=== PATIENT | male | born 1940 | race Caucasian/White ===

== ENCOUNTER 2019-11-02 13:00 | Emergency (ER) | payer BC ==
[~2019-11-02] VITALS: Ht 177.8 cm; Wt 54.4 kg
[2019-11-02 15:35] VITALS: BP 128/76
== END 2019-11-02 16:12 | disposition home or self-care (01) ==
LOC: ER 13:00
DX: S29.011A Strain of muscle and tendon of front wall of thorax, initial encounter (principal); K80.20 Calculus of gallbladder without cholecystitis without obstruction; I10 Essential (primary) hypertension; Z95.1 Presence of aortocoronary bypass graft; Z91.041 Radiographic dye allergy status; W18.39XA Other fall on same level, initial encounter; Y93.89 Activity, other specified; Y92.89 Other specified places as the place of occurrence of the external cause; Y99.8 Other external cause status
CPT/HCPCS: 71250; 74176; 93005

== ENCOUNTER 2022-06-21 14:23 | Inpatient (IN) | payer BC ==
[2022-06-21] VITALS (14 sets, daily range): BP systolic 77–127; BP diastolic 25–70
[~2022-06-21] VITALS: Ht 170.2 cm; Wt 82.1 kg
[2022-06-21] MEDS ORDERED: ETOMIDATE (2MG/ML) 20ML VIAL IV ONE (14:37)
[2022-06-21] MEDS ORDERED: ROCURONIUM 10MG/ML 10ML VIAL IV ONE (14:37)
[2022-06-21] MEDS ORDERED: MIDAZOLAM DRIP 50 mg/50mL 50 ML IV ONE (14:37)
[2022-06-21] MEDS ORDERED: NOREPINEPHRINE 8 MG/250ML KIT 250 ML IV ONE (14:50)
[2022-06-21] MEDS ORDERED: SODIUM CHLORIDE 0.9% 2,000 ML IV ONE (14:50)
[2022-06-21] MEDS ORDERED: VANCOMYCIN 1GM/250ML 250 ML IV ONE ×3 (14:50→20:00)
[2022-06-21] MEDS ORDERED: CEFEPIME 1GM/ 50ML 50 ML IV ONE (15:30)
[2022-06-21 15:45] LABS: Hematocrit 15.3 % (41.0-53.0); Mean Corpuscular Hemoglobin 34.6 pg (28.0-32.0); Mean Corpuscular Hgb Conc. 26.9 g/dL (32.0-36.0); Mean Corpuscular Volume 128.6 fL (80.0-100.0); Red Blood Cells 1.19 10^6/uL (4.5-5.90)
[2022-06-21 15:49] LABS: Albumin 2.3 g/dL (3.4-5.0); BUN/Creatinine Ratio 22.5; Calcium 7.3 mg/dL (8.5-10.1)
[2022-06-21 15:51] LABS: Bilirubin, Total 1.4 mg/dL (0.2-1.0); Total Protein 4.9 g/dL (6.4-8.2)
[2022-06-21 15:54] LABS: Lactic Acid w/Reflex 14.4 mmol/L (0.4-2.0)
[2022-06-21] MEDS: NOREPINEPHRINE 8 MG/250ML KIT 250 ML IV SCH (15:56)
[2022-06-21] MEDS: MIDAZOLAM DRIP 50 mg/50mL 50 ML IV SCH ×2 (15:57→18:55)
[2022-06-21 16:03] LABS: Amphetamine Screen, Urine NEGATIVE (NEGATIVE); Barbiturate Scree,Urine NEGATIVE (NEGATIVE); Benzodiazephine Screen, Urine NEGATIVE (NEGATIVE); Cannabinoid Screen, Urine NEGATIVE (NEGATIVE); Cocaine Screen, Urine NEGATIVE (NEGATIVE); Opiate Scree,Urine NEGATIVE (NEGATIVE); Phencyclidine Screen, Urine NEGATIVE (NEGATIVE)
[2022-06-21 16:07] LABS: Red Cell Distribution Width 31.1 % (11.8-14.3)
[2022-06-21 16:09] LABS: White Blood Cell 48.9 10^3/uL (4.4-10.8)
[2022-06-21 16:10] LABS: Hemoglobin 4.1 g/dL (13.5-17.5)
[2022-06-21 16:11] LABS: Basophils % (manual) 0 (0.0-2.0)
[2022-06-21 16:13] LABS: Urine Bacteria NONE SEEN /hpf (None Seen); Urine Blood Negative /uL (Negative); Urine Hyaline Cast FEW /lpf (0 - 2); Urine Mucus FEW (None Seen); Urine Specific Gravity 1.017 (1.001-1.035); Urine WBC 1 /hpf (0 - 3)
[2022-06-21] MEDS ORDERED: phytonadione 2.5 MG in SODIUM CHL 0.9% 50 ML IV ONE (16:15)
[2022-06-21 16:19] LABS: Potassium 5.9 mmol/L (3.5-5.1)
[2022-06-21 16:42] LABS: INR > 8.0 (0.9-1.15)
[2022-06-21] MEDS ORDERED: CALCIUM GLUC 1,000mg/50ml-NS 50 ML IV ONE (17:00)
[2022-06-21] MEDS ORDERED: DEXTROSE (50%) 50ML SYRG IV ONE (17:00)
[2022-06-21] MEDS ORDERED: InsuLIN REG 1unit/0.01ml Soln (100units/ml) IV ONE (17:00)
[2022-06-21 18:15] LABS: Lactic Acid w/Reflex 10.4 mmol/L (0.4-2.0)
[2022-06-21] MEDS ORDERED: PANTOPRAZOLE 80 MG in SODIUM CHL 0.9% 100 ML IV ONE (18:30)
[2022-06-21] MEDS ORDERED: PANTOPRAZOLE 40mg/50ML NS AE 50 ML IV ONE (18:30)
[2022-06-21] MEDS ORDERED: SODIUM BICARBONATE 50ML VIAL 150 ML in D5W 5% 1,000 ML IV ONE (19:15)
[2022-06-21 19:17] LABS: Band Neutrophils % (manual) 8; Eosinophils % (manual) 1 (0-7); Lymphocytes % (manual) 24 (10.0-50.0); Monocytes % (manual) 22 (0-12)
[2022-06-21 19:18] LABS: Metamyelocytes % 10; Myelocytes % 4; Reactive Lymphocytes 4
[2022-06-21] MEDS ORDERED: ONDANSETRON HCL 4 MG/2 ML VIAL IV PRN (19:30)
[2022-06-21] MEDS ORDERED: VANCOMYCIN PER PHARMACY 0 MG IV SCH (19:30)
[2022-06-21] MEDS ORDERED: OCTREOTIDE ACETATE 100 MCG in SODIUM CHL 0.9% 50 ML IV ONE (19:30)
[2022-06-21 19:40] LABS: Blast Cells 4
[2022-06-21 20:24] LABS: Basophils # (auto) 0.5 10 ^3/uL (0-0.2); Basophils % (auto) 0.8 % (0.0-2.0); Eosinophils # (auto) 0.9 10 ^3/uL (0-0.8); Eosinophils % (auto) 1.3 % (0.0-7.0); Hematocrit 25.2 % (41.0-53.0); Hemoglobin 7.3 g/dL (13.5-17.5); Lymphocytes % (auto) 10.7 % (10.0-50.0); Mean Corpuscular Hemoglobin 31.3 pg (28.0-32.0); Mean Corpuscular Hgb Conc. 29.2 g/dL (32.0-36.0); Mean Corpuscular Volume 107.2 fL (80.0-100.0); Monocytes # (auto) 38.5 10 ^3/uL (0-1.3); Neutrophils # (auto) 18.5 10 ^3/uL (1.6-8.6); Neutrophils % (auto) 28.3 % (37.0-80.0); Red Blood Cells 2.35 10^6/uL (4.5-5.90)
[2022-06-21 20:26] LABS: Monocytes % (auto) 58.9 % (0.0-12.0)
[2022-06-21 20:33] LABS: White Blood Cell 65.5 10^3/uL (4.4-10.8)
[2022-06-21 20:37] LABS: Albumin 2.3 g/dL (3.4-5.0); BUN/Creatinine Ratio 23.4; Calcium 6.9 mg/dL (8.5-10.1); Potassium 5.4 mmol/L (3.5-5.1)
[2022-06-21 20:46] LABS: Bilirubin, Total 1.2 mg/dL (0.2-1.0)
[2022-06-21] MEDS: OCTREOTIDE ACETATE 500 MCG in SODIUM CHL 0.9% 99 ML IV SCH (21:24)
[2022-06-21 21:43] LABS: INR 6.03 (0.9-1.15)
[2022-06-21] MEDS ORDERED: CEFEPIME 2 GM in SODIUM CHL 0.9% 50 ML IV SCH (22:00)
[2022-06-21] MEDS ORDERED: metroNIDAZOLE 500MG/100ML 100 ML IV ONE (22:15)
[2022-06-21] MEDS: VASOPRESSIN 50 UNITS in D5W 5% 247.5 ML IV SCH (22:30)
[2022-06-21] MEDS ORDERED: ACETAMINOPHEN 650 MG RECT SUPP PR PRN (22:45)
[2022-06-22] VITALS (111 sets, daily range): BP systolic 88–128; BP diastolic 36–96
[2022-06-22 01:02] LABS: Hemoglobin 7.7 g/dL (13.5-17.5)
[2022-06-22 01:09] LABS: Mean Corpuscular Hemoglobin 30.7 pg (28.0-32.0); Mean Corpuscular Hgb Conc. 30.8 g/dL (32.0-36.0); Mean Corpuscular Volume 99.6 fL (80.0-100.0); Red Blood Cells 2.51 10^6/uL (4.5-5.90); Red Cell Distribution Width 21.4 % (11.8-14.3)
[2022-06-22 01:10] LABS: Basophils % (manual) 0 (0.0-2.0); Eosinophils % (manual) 0 (0-7); Promyelocytes % 0
[2022-06-22 01:16] LABS: Albumin 2.3 g/dL (3.4-5.0); BUN/Creatinine Ratio 26.4; Calcium 6.4 mg/dL (8.5-10.1); Magnesium 2.5 mg/dL (1.6-2.6); Potassium 5.2 mmol/L (3.5-5.1)
[2022-06-22 01:25] LABS: Bilirubin, Total 1.2 mg/dL (0.2-1.0); Phosphorus 8.8 mg/dL (2.5-4.90); Total Protein 4.7 g/dL (6.4-8.2)
[2022-06-22] MEDS: PANTOPRAZOLE 40mg/50ML NS AE 50 ML IV SCH ×5 (01:41→21:37)
[2022-06-22] MEDS: NOREPINEPHRINE 8 MG/250ML KIT 250 ML IV SCH ×4 (02:08→17:16)
[2022-06-22] MEDS: MIDAZOLAM DRIP 50 mg/50mL 50 ML IV SCH ×4 (03:13→21:35)
[2022-06-22] MEDS ORDERED: PROPOFOL 100 ML IV ONE (04:39)
[2022-06-22 04:42] LABS: INR 2.83 (0.9-1.15)
[2022-06-22] MEDS: PROPOFOL 100 ML IV SCH ×2 (04:45→12:10)
[2022-06-22 06:58] LABS: Band Neutrophils % (manual) 5; Blast Cells 5; Lymphocytes % (manual) 23 (10.0-50.0); Metamyelocytes % 8; Monocytes % (manual) 23 (0-12); Myelocytes % 6; Reactive Lymphocytes 1
[2022-06-22] MEDS: OCTREOTIDE ACETATE 500 MCG in SODIUM CHL 0.9% 99 ML IV SCH ×2 (08:19→17:15)
[2022-06-22] MEDS: VASOPRESSIN 50 UNITS in D5W 5% 247.5 ML IV SCH (09:08)
[2022-06-22] MEDS: fentaNYL Drip 2500mCg/250mlNS 250 ML IV SCH (14:03)
[2022-06-22] MEDS ORDERED: VANCOMYCIN 1GM/250ML 250 ML IV ONE (14:30)
[2022-06-22] MEDS ORDERED: PIPERACILLIN-TAZOB 3.375GM 100 ML IV SCH (15:00)
[2022-06-22] MEDS ORDERED: CEFEPIME 2 GM in SODIUM CHL 0.9% 50 ML IV SCH (16:00)
[2022-06-22] MEDS: CEFEPIME 1GM/ 50ML 50 ML IV SCH (16:23)
[2022-06-22] MEDS ORDERED: PIPERACILLIN-TAZO 4.5GM 100 ML IV SCH (18:00)
[2022-06-22] MEDS ORDERED: EPINEPHrine HCL 1 MG/10 ML SYRG IV ONE (21:15)
[2022-06-22] MEDS: metroNIDAZOLE 500MG/100ML 100 ML IV SCH (21:35)
[2022-06-22 22:04] LABS: Free T4 (Free Thyroxine) 0.93 ng/dL (0.89-1.76)
[2022-06-23] VITALS (100 sets, daily range): BP systolic 104–125; BP diastolic 51–61
[2022-06-23] MEDS: OCTREOTIDE ACETATE 500 MCG in SODIUM CHL 0.9% 99 ML IV SCH ×4 (02:44→23:30)
[2022-06-23] MEDS: PANTOPRAZOLE 40mg/50ML NS AE 50 ML IV SCH ×6 (02:44→22:11)
[2022-06-23] MEDS: CEFEPIME 1GM/ 50ML 50 ML IV SCH ×2 (03:48→17:24)
[2022-06-23] MEDS: MIDAZOLAM DRIP 50 mg/50mL 50 ML IV SCH ×2 (03:49→09:53)
[2022-06-23 03:53] LABS: Hematocrit 21.3 % (41.0-53.0); Mean Corpuscular Hemoglobin 32.1 pg (28.0-32.0); Mean Corpuscular Volume 97.3 fL (80.0-100.0); Red Blood Cells 2.19 10^6/uL (4.5-5.90); White Blood Cell 26.3 10^3/uL (4.4-10.8)
[2022-06-23 04:04] LABS: Albumin 2.2 g/dL (3.4-5.0)
[2022-06-23 04:12] LABS: INR 1.77 (0.9-1.15); Partial Thromboplastin Time 37.6 sec (24.6-33.4)
[2022-06-23 04:13] LABS: BUN/Creatinine Ratio 33.3; Bilirubin, Total 1.5 mg/dL (0.2-1.0); Total Protein 4.9 g/dL (6.4-8.2)
[2022-06-23 04:21] LABS: Red Cell Distribution Width 20.6 % (11.8-14.3)
[2022-06-23 04:23] LABS: Basophils % (manual) 0 (0.0-2.0); Eosinophils % (manual) 0 (0-7); Reactive Lymphocytes 0
[2022-06-23] MEDS: NOREPINEPHRINE 8 MG/250ML KIT 250 ML IV SCH ×3 (04:40→21:25)
[2022-06-23] MEDS: metroNIDAZOLE 500MG/100ML 100 ML IV SCH ×3 (05:40→21:41)
[2022-06-23] MEDS: VASOPRESSIN 50 UNITS in D5W 5% 247.5 ML IV SCH (07:50)
[2022-06-23] MEDS: hydroxyUREA 500 MG CAP PO SCH (09:52)
[2022-06-23 10:18] LABS: Band Neutrophils % (manual) 7; Blast Cells 4; Lymphocytes % (manual) 27 (10.0-50.0); Metamyelocytes % 6; Monocytes % (manual) 24 (0-12); Myelocytes % 3; Promyelocytes % 1
[2022-06-23] MEDS ORDERED: VANCOMYCIN 1GM/250ML 250 ML IV ONE (11:00)
[2022-06-23] MEDS: fentaNYL Drip 2500mCg/250mlNS 250 ML IV SCH (11:43)
[2022-06-23] MEDS ORDERED: CYANOCOBALAMIN (B-12) 1000 MCG/1 ML VIAL SUBCUT ONE (12:45)
[2022-06-24] VITALS (117 sets, daily range): BP systolic 96–127; BP diastolic 43–65
[2022-06-24 03:37] LABS: White Blood Cell 22.9 10^3/uL (4.4-10.8)
[2022-06-24 03:39] LABS: Hematocrit 20.1 % (41.0-53.0); Mean Corpuscular Hemoglobin 32.4 pg (28.0-32.0); Mean Corpuscular Hgb Conc. 33.3 g/dL (32.0-36.0); Mean Corpuscular Volume 97.5 fL (80.0-100.0); Red Blood Cells 2.06 10^6/uL (4.5-5.90)
[2022-06-24] MEDS: PANTOPRAZOLE 40mg/50ML NS AE 50 ML IV SCH ×4 (03:42→21:14)
[2022-06-24 03:57] LABS: BUN/Creatinine Ratio 42.1; Calcium 6.1 mg/dL (8.5-10.1); Potassium 3.7 mmol/L (3.5-5.1)
[2022-06-24 04:07] LABS: Red Cell Distribution Width 21.2 % (11.8-14.3)
[2022-06-24 04:09] LABS: Hemoglobin 6.7 g/dL (13.5-17.5)
[2022-06-24 04:11] LABS: Basophils % (manual) 0 (0.0-2.0); Promyelocytes % 0; Reactive Lymphocytes 0
[2022-06-24 04:19] LABS: Band Neutrophils % (manual) 7; Blast Cells 4; Eosinophils % (manual) 2 (0-7); Lymphocytes % (manual) 24 (10.0-50.0); Metamyelocytes % 4; Monocytes % (manual) 32 (0-12); Myelocytes % 4
[2022-06-24] MEDS: PROPOFOL 100 ML IV SCH (04:45)
[2022-06-24] MEDS: CEFEPIME 1GM/ 50ML 50 ML IV SCH ×2 (04:50→16:00)
[2022-06-24] MEDS: metroNIDAZOLE 500MG/100ML 100 ML IV SCH ×3 (06:12→21:47)
[2022-06-24] MEDS: OCTREOTIDE ACETATE 500 MCG in SODIUM CHL 0.9% 99 ML IV SCH ×3 (07:15→23:37)
[2022-06-24] MEDS: MIDAZOLAM DRIP 50 mg/50mL 50 ML IV SCH ×2 (07:15→13:03)
[2022-06-24] MEDS: hydroxyUREA 500 MG CAP PO SCH (10:00)
[2022-06-24] MEDS: THIAMINE 100mg/ml INJ (200mg/2ml VIAL) IV SCH (10:14)
[2022-06-24] MEDS: FOLIC ACID 1 MG in D5W 5% 50 ML INJ SCH (10:15)
[2022-06-24] MEDS: fentaNYL Drip 2500mCg/250mlNS 250 ML IV SCH (10:29)
[2022-06-24] MEDS ORDERED: SOD CHL 0.45% 1,000 ML IV SCH (11:45)
[2022-06-24] MEDS: NOREPINEPHRINE 8 MG/250ML KIT 250 ML IV SCH (12:04)
[2022-06-24 12:05] LABS: Magnesium 2.5 mg/dL (1.6-2.6); Phosphorus 2.4 mg/dL (2.5-4.90)
[2022-06-24 14:54] LABS: Protein, Urine 88.9 mg/dL (0.0-11.9)
[2022-06-24] MEDS ORDERED: TPN PER PHARMACY 0 ML IV SCH (15:45)
[2022-06-24] MEDS ORDERED: AMINO ACID INFUSION IN D10W 1,000 ML IV NR ×2 (16:00→20:00)
[2022-06-24] MEDS ORDERED: POTASSIUM PHOSPHATE 26.4 MEQ in SODIUM CHL 0.9% 100 ML IV ONE (16:00)
[2022-06-24] MEDS ORDERED: DEXTROSE (50%) 50ML SYRG IV SCH (16:15)
[2022-06-24] MEDS: ACCU-CHEK COMFORT CURVE STRIP VI SCH ×2 (17:51→23:37)
[2022-06-24] MEDS: InsuLIN REG 1unit/0.01ml Soln (100units/ml) SC SCH ×2 (17:51→23:44)
[2022-06-24] MEDS: DexAMETHasone SOD PHOS 4 MG/1ML SDV INJ IV SCH ×2 (17:55→23:36)
[2022-06-24] MEDS: SOD CHL 0.45% 1,000 ML IV SCH (19:58)
[2022-06-24] MEDS ORDERED: CYANOCOBALAMIN (B-12) 1000 MCG/1 ML VIAL IM ONE (21:15)
[2022-06-24] MEDS: VASOPRESSIN 50 UNITS in D5W 5% 247.5 ML IV SCH (22:30)
[2022-06-24 22:53] LABS: White Blood Cell 60.8 10^3/uL (4.4-10.8)
[2022-06-25] VITALS (108 sets, daily range): BP systolic 95–116; BP diastolic 45–64
[2022-06-25] MEDS: MIDAZOLAM DRIP 50 mg/50mL 50 ML IV SCH ×3 (00:03→21:00)
[2022-06-25] MEDS: PANTOPRAZOLE 40mg/50ML NS AE 50 ML IV SCH ×3 (02:40→11:55)
[2022-06-25] MEDS: CEFEPIME 1GM/ 50ML 50 ML IV SCH ×2 (04:01→16:59)
[2022-06-25 04:43] LABS: Hematocrit 28.2 % (41.0-53.0); Hemoglobin 9.3 g/dL (13.5-17.5); Mean Corpuscular Hemoglobin 30.9 pg (28.0-32.0); Mean Corpuscular Volume 93.5 fL (80.0-100.0); Red Blood Cells 3.01 10^6/uL (4.5-5.90); Red Cell Distribution Width 18.5 % (11.8-14.3); White Blood Cell 22.4 10^3/uL (4.4-10.8)
[2022-06-25] MEDS: PROPOFOL 100 ML IV SCH (04:45)
[2022-06-25 04:54] LABS: INR 1.4 (0.9-1.15); Partial Thromboplastin Time 38.4 sec (24.6-33.4)
[2022-06-25 04:58] LABS: Basophils % (manual) 0 (0.0-2.0); Blast Cells 0; Metamyelocytes % 0; Promyelocytes % 0; Reactive Lymphocytes 0
[2022-06-25 05:01] LABS: Calcium 6.3 mg/dL (8.5-10.1); Magnesium 2.4 mg/dL (1.6-2.6)
[2022-06-25 05:06] LABS: BUN/Creatinine Ratio 40.5; Bilirubin, Total 1.5 mg/dL (0.2-1.0); Phosphorus 2.4 mg/dL (2.5-4.90); Total Protein 4.4 g/dL (6.4-8.2)
[2022-06-25] MEDS: DexAMETHasone SOD PHOS 4 MG/1ML SDV INJ IV SCH ×4 (05:33→23:49)
[2022-06-25] MEDS: ACCU-CHEK COMFORT CURVE STRIP VI SCH ×4 (05:34→23:49)
[2022-06-25] MEDS: metroNIDAZOLE 500MG/100ML 100 ML IV SCH ×3 (05:34→22:11)
[2022-06-25] MEDS: InsuLIN REG 1unit/0.01ml Soln (100units/ml) SC SCH ×4 (05:36→23:52)
[2022-06-25 06:51] LABS: Band Neutrophils % (manual) 15; Eosinophils % (manual) 1 (0-7); Lymphocytes % (manual) 25 (10.0-50.0); Myelocytes % 8
[2022-06-25 06:55] LABS: Monocytes % (manual) 21 (0-12)
[2022-06-25] MEDS: hydroxyUREA 500 MG CAP PO SCH (09:39)
[2022-06-25] MEDS: CYANOCOBALAMIN 500 MCG TAB PO SCH (09:40)
[2022-06-25] MEDS: FOLIC ACID 1 MG in D5W 5% 50 ML INJ SCH (09:47)
[2022-06-25] MEDS: THIAMINE 100mg/ml INJ (200mg/2ml VIAL) IV SCH (09:47)
[2022-06-25] MEDS ORDERED: FOLIC ACID 1 MG in D5W 5% 50 ML INJ SCH (10:00)
[2022-06-25] MEDS: fentaNYL Drip 2500mCg/250mlNS 250 ML IV SCH (12:13)
[2022-06-25] MEDS: SOD CHL 0.45% 1,000 ML IV SCH (14:29)
[2022-06-25] MEDS: VANCOMYCIN 1GM/250ML 250 ML IV SCH (15:01)
[2022-06-25] MEDS: NOREPINEPHRINE 8 MG/250ML KIT 250 ML IV SCH (15:30)
[2022-06-25 19:21] LABS: Hepatitis B Core IgM Negative
[2022-06-25] MEDS: OCTREOTIDE ACETATE 500 MCG in SODIUM CHL 0.9% 99 ML IV SCH (19:34)
[2022-06-25] MEDS ORDERED: TPN PER PHARMACY IV NR ×6 (20:00)
[2022-06-25] MEDS: PANTOPRAZOLE 40 MG/10 ML VIAL INJ IV SCH (22:11)
[2022-06-25] MEDS: VASOPRESSIN 50 UNITS in D5W 5% 247.5 ML IV SCH (22:30)
[2022-06-26] VITALS (86 sets, daily range): BP systolic 106–123; BP diastolic 50–65
[2022-06-26] MEDS: CEFEPIME 1GM/ 50ML 50 ML IV SCH ×2 (03:38→18:00)
[2022-06-26 03:44] LABS: Hemoglobin 8.2 g/dL (13.5-17.5); Mean Corpuscular Hgb Conc. 31.5 g/dL (32.0-36.0)
[2022-06-26 03:46] LABS: Hematocrit 25.9 % (41.0-53.0); Mean Corpuscular Hemoglobin 30.2 pg (28.0-32.0)
[2022-06-26 04:04] LABS: Albumin 1.9 g/dL (3.4-5.0); BUN/Creatinine Ratio 45.5; Calcium 6.7 mg/dL (8.5-10.1); Magnesium 2.5 mg/dL (1.6-2.6); Potassium 4.1 mmol/L (3.5-5.1)
[2022-06-26 04:07] LABS: Bilirubin, Total 1.3 mg/dL (0.2-1.0); Phosphorus 2.3 mg/dL (2.5-4.90); Total Protein 4.7 g/dL (6.4-8.2)
[2022-06-26 04:22] LABS: White Blood Cell 35.3 10^3/uL (4.4-10.8)
[2022-06-26 04:23] LABS: Basophils % (manual) 0 (0.0-2.0); Blast Cells 0; Eosinophils % (manual) 0 (0-7); Metamyelocytes % 0; Promyelocytes % 0
[2022-06-26] MEDS: PROPOFOL 100 ML IV SCH (04:45)
[2022-06-26 05:21] LABS: Myelocytes % 5; Reactive Lymphocytes 2
[2022-06-26 05:22] LABS: Band Neutrophils % (manual) 11; Lymphocytes % (manual) 24 (10.0-50.0); Monocytes % (manual) 28 (0-12)
[2022-06-26] MEDS: DexAMETHasone SOD PHOS 4 MG/1ML SDV INJ IV SCH ×4 (06:05→23:39)
[2022-06-26] MEDS: ACCU-CHEK COMFORT CURVE STRIP VI SCH ×4 (06:08→23:40)
[2022-06-26] MEDS: InsuLIN REG 1unit/0.01ml Soln (100units/ml) SC SCH ×4 (06:08→23:41)
[2022-06-26] MEDS: OCTREOTIDE ACETATE 500 MCG in SODIUM CHL 0.9% 99 ML IV SCH (06:12)
[2022-06-26] MEDS: metroNIDAZOLE 500MG/100ML 100 ML IV SCH ×3 (06:12→21:33)
[2022-06-26] MEDS: hydroxyUREA 500 MG CAP PO SCH (08:38)
[2022-06-26] MEDS: CYANOCOBALAMIN 500 MCG TAB PO SCH (08:39)
[2022-06-26] MEDS: PANTOPRAZOLE 40 MG/10 ML VIAL INJ IV SCH ×2 (09:57→21:33)
[2022-06-26] MEDS: FOLIC ACID 1 MG in D5W 5% 50 ML INJ SCH (09:57)
[2022-06-26] MEDS: THIAMINE 100mg/ml INJ (200mg/2ml VIAL) IV SCH (09:57)
[2022-06-26] MEDS: MIDAZOLAM DRIP 50 mg/50mL 50 ML IV SCH (09:58)
[2022-06-26] MEDS: fentaNYL Drip 2500mCg/250mlNS 250 ML IV SCH (10:00)
[2022-06-26] MEDS: CALCIUM GLUC 1,000mg/50ml-NS 50 ML IV SCH ×2 (11:34→11:43)
[2022-06-26] MEDS ORDERED: SODIUM PHOSP 20MEQ(15MMOL) IN NS 100 ML IV ONE (12:00)
[2022-06-26] MEDS: SOD CHL 0.45% 1,000 ML IV SCH (12:43)
[2022-06-26] MEDS: VANCOMYCIN 1GM/250ML 250 ML IV SCH (15:26)
[2022-06-26] MEDS: NOREPINEPHRINE 8 MG/250ML KIT 250 ML IV SCH (15:30)
[2022-06-26] MEDS ORDERED: TPN PER PHARMACY IV NR ×6 (20:00)
[2022-06-26] MEDS: VASOPRESSIN 50 UNITS in D5W 5% 247.5 ML IV SCH (22:30)
[2022-06-27] VITALS (109 sets, daily range): BP systolic 103–121; BP diastolic 47–59
[2022-06-27] MEDS: MIDAZOLAM DRIP 50 mg/50mL 50 ML IV SCH ×3 (01:00→21:49)
[2022-06-27] MEDS: CEFEPIME 1GM/ 50ML 50 ML IV SCH ×2 (04:03→16:32)
[2022-06-27 04:26] LABS: Red Cell Distribution Width 18.1 % (11.8-14.3)
[2022-06-27 04:32] LABS: Hematocrit 26.2 % (41.0-53.0); Hemoglobin 8.2 g/dL (13.5-17.5); Mean Corpuscular Hemoglobin 30.2 pg (28.0-32.0); Mean Corpuscular Hgb Conc. 31.5 g/dL (32.0-36.0); Mean Corpuscular Volume 95.9 fL (80.0-100.0); Red Blood Cells 2.73 10^6/uL (4.5-5.90)
[2022-06-27 04:43] LABS: Albumin 1.9 g/dL (3.4-5.0); Calcium 6.7 mg/dL (8.5-10.1); Magnesium 2.4 mg/dL (1.6-2.6); Potassium 3.9 mmol/L (3.5-5.1)
[2022-06-27] MEDS: PROPOFOL 100 ML IV SCH (04:45)
[2022-06-27 04:48] LABS: BUN/Creatinine Ratio 60.4; Bilirubin, Total 1.4 mg/dL (0.2-1.0); INR 1.44 (0.9-1.15); Partial Thromboplastin Time 33.1 sec (24.6-33.4); Phosphorus 2.3 mg/dL (2.5-4.90); Total Protein 4.3 g/dL (6.4-8.2)
[2022-06-27 05:29] LABS: White Blood Cell 54.3 10^3/uL (4.4-10.8)
[2022-06-27 05:30] LABS: Basophils % (manual) 0 (0.0-2.0); Blast Cells 0; Eosinophils % (manual) 0 (0-7); Promyelocytes % 0
[2022-06-27] MEDS: metroNIDAZOLE 500MG/100ML 100 ML IV SCH ×3 (05:36→21:47)
[2022-06-27] MEDS: DexAMETHasone SOD PHOS 4 MG/1ML SDV INJ IV SCH ×4 (05:36→23:59)
[2022-06-27] MEDS: ACCU-CHEK COMFORT CURVE STRIP VI SCH ×3 (05:36→18:14)
[2022-06-27] MEDS: InsuLIN REG 1unit/0.01ml Soln (100units/ml) SC SCH ×3 (05:39→18:20)
[2022-06-27] MEDS: PANTOPRAZOLE 40 MG/10 ML VIAL INJ IV SCH ×2 (09:23→21:47)
[2022-06-27] MEDS: FOLIC ACID 1 MG in D5W 5% 50 ML INJ SCH (09:24)
[2022-06-27] MEDS: hydroxyUREA 500 MG CAP PO SCH (09:25)
[2022-06-27] MEDS: CYANOCOBALAMIN 500 MCG TAB PO SCH (09:25)
[2022-06-27] MEDS: CALCIUM GLUC 1,000mg/50ml-NS 50 ML IV SCH ×2 (09:31→10:41)
[2022-06-27] MEDS: THIAMINE 100mg/ml INJ (200mg/2ml VIAL) IV SCH (10:30)
[2022-06-27] MEDS: SOD CHL 0.45% 1,000 ML IV SCH (10:42)
[2022-06-27] MEDS: fentaNYL Drip 2500mCg/250mlNS 250 ML IV SCH (10:49)
[2022-06-27] MEDS ORDERED: SODIUM PHOSP 20MEQ(15MMOL) IN NS 100 ML IV ONE (11:00)
[2022-06-27] MEDS: VANCOMYCIN 1GM/250ML 250 ML IV SCH (12:11)
[2022-06-27] MEDS: NOREPINEPHRINE 8 MG/250ML KIT 250 ML IV SCH (14:40)
[2022-06-27] MEDS ORDERED: TPN PER PHARMACY IV NR ×6 (20:00)
[2022-06-28] VITALS (104 sets, daily range): BP systolic 103–124; BP diastolic 47–62
[2022-06-28] MEDS: CEFEPIME 1GM/ 50ML 50 ML IV SCH ×2 (03:51→17:26)
[2022-06-28] MEDS: metroNIDAZOLE 500MG/100ML 100 ML IV SCH ×3 (06:00→21:43)
[2022-06-28] MEDS: DexAMETHasone SOD PHOS 4 MG/1ML SDV INJ IV SCH ×3 (06:00→23:59)
[2022-06-28] MEDS: InsuLIN REG 1unit/0.01ml Soln (100units/ml) SC SCH ×4 (06:13→17:57)
[2022-06-28] MEDS: ACCU-CHEK COMFORT CURVE STRIP VI SCH ×4 (06:13→17:55)
[2022-06-28] MEDS: fentaNYL Drip 2500mCg/250mlNS 250 ML IV SCH ×2 (06:19→19:38)
[2022-06-28 07:20] LABS: Albumin 1.9 g/dL (3.4-5.0); Calcium 6.8 mg/dL (8.5-10.1); Magnesium 2.2 mg/dL (1.6-2.6); Potassium 4.2 mmol/L (3.5-5.1)
[2022-06-28 07:24] LABS: Bilirubin, Total 2.1 mg/dL (0.2-1.0); Phosphorus 3.4 mg/dL (2.5-4.90); Total Protein 4.3 g/dL (6.4-8.2)
[2022-06-28 07:24] LABS: Hematocrit 26.2 % (41.0-53.0); Mean Corpuscular Hemoglobin 30.4 pg (28.0-32.0); Mean Corpuscular Hgb Conc. 30.6 g/dL (32.0-36.0); Mean Corpuscular Volume 99.3 fL (80.0-100.0); Red Blood Cells 2.63 10^6/uL (4.5-5.90); Red Cell Distribution Width 19.5 % (11.8-14.3)
[2022-06-28] MEDS: VASOPRESSIN 50 UNITS in D5W 5% 247.5 ML IV SCH ×2 (07:30→07:54)
[2022-06-28 07:33] LABS: BUN/Creatinine Ratio 65.7
[2022-06-28] MEDS: PROPOFOL 100 ML IV SCH (07:55)
[2022-06-28 08:01] LABS: White Blood Cell 93.3 10^3/uL (4.4-10.8)
[2022-06-28 08:02] LABS: Basophils % (manual) 0 (0.0-2.0); Blast Cells 0; Promyelocytes % 0; Reactive Lymphocytes 0
[2022-06-28] MEDS: SOD CHL 0.45% 1,000 ML IV SCH (09:11)
[2022-06-28 09:16] LABS: Band Neutrophils % (manual) 7; Eosinophils % (manual) 1 (0-7); Lymphocytes % (manual) 11 (10.0-50.0); Metamyelocytes % 15; Monocytes % (manual) 15 (0-12); Myelocytes % 22
[2022-06-28] MEDS: CYANOCOBALAMIN 500 MCG TAB PO SCH (10:00)
[2022-06-28] MEDS: hydroxyUREA 500 MG CAP PO SCH (10:00)
[2022-06-28] MEDS: FOLIC ACID 1 MG in D5W 5% 50 ML INJ SCH (10:47)
[2022-06-28] MEDS: CALCIUM GLUC 1,000mg/50ml-NS 50 ML IV SCH ×4 (10:48→12:57)
[2022-06-28] MEDS: THIAMINE 100mg/ml INJ (200mg/2ml VIAL) IV SCH (10:48)
[2022-06-28] MEDS: PANTOPRAZOLE 40 MG/10 ML VIAL INJ IV SCH ×2 (10:49→21:42)
[2022-06-28] MEDS: MIDAZOLAM DRIP 50 mg/50mL 50 ML IV SCH ×2 (11:59→19:37)
[2022-06-28] MEDS: VANCOMYCIN 1GM/250ML 250 ML IV SCH (13:57)
[2022-06-28] MEDS: NOREPINEPHRINE 8 MG/250ML KIT 250 ML IV SCH (15:30)
[2022-06-28 15:43] LABS: Hepatitis A Ab IgM Negative; Hepatitis C Antibody Negative (Negative)
[2022-06-28 15:47] LABS: Hepatitis C Antibody Negative (Negative)
[2022-06-28] MEDS ORDERED: POTASSIUM PHOSPHATE IV NR ×7 (20:00)
[2022-06-28] MEDS ORDERED: MAGNESIUM SULF IV NR ×7 (20:00)
[2022-06-28] MEDS ORDERED: [UNRECOGNIZED DRUG - OTHER] IV NR ×7 (20:00)
[2022-06-29] VITALS (106 sets, daily range): BP systolic 99–126; BP diastolic 46–74
[2022-06-29] MEDS: InsuLIN REG 1unit/0.01ml Soln (100units/ml) SC SCH ×4 (00:04→17:51)
[2022-06-29] MEDS: CEFEPIME 1GM/ 50ML 50 ML IV SCH ×2 (03:43→15:50)
[2022-06-29] MEDS: MIDAZOLAM DRIP 50 mg/50mL 50 ML IV SCH ×5 (03:44→22:05)
[2022-06-29 04:16] LABS: Red Blood Cells 2.78 10^6/uL (4.5-5.90)
[2022-06-29 04:20] LABS: Hematocrit 26.4 % (41.0-53.0); Mean Corpuscular Hemoglobin 28.9 pg (28.0-32.0); Mean Corpuscular Hgb Conc. 30.4 g/dL (32.0-36.0); Red Cell Distribution Width 18.7 % (11.8-14.3)
[2022-06-29 04:44] LABS: Albumin 1.9 g/dL (3.4-5.0); Magnesium 1.9 mg/dL (1.6-2.6); Potassium 3.9 mmol/L (3.5-5.1)
[2022-06-29 04:48] LABS: Bilirubin, Total 2.4 mg/dL (0.2-1.0); Phosphorus 2.7 mg/dL (2.5-4.90); Total Protein 4.3 g/dL (6.4-8.2)
[2022-06-29 05:09] LABS: White Blood Cell 137.5 10^3/uL (4.4-10.8)
[2022-06-29 05:10] LABS: Basophils % (manual) 0 (0.0-2.0); Blast Cells 0; Eosinophils % (manual) 0 (0-7); Promyelocytes % 0; Reactive Lymphocytes 0
[2022-06-29] MEDS: metroNIDAZOLE 500MG/100ML 100 ML IV SCH ×3 (05:53→22:05)
[2022-06-29] MEDS: ACCU-CHEK COMFORT CURVE STRIP VI SCH ×4 (05:54→17:50)
[2022-06-29] MEDS: SOD CHL 0.45% 1,000 ML IV SCH (07:25)
[2022-06-29] MEDS: PROPOFOL 100 ML IV SCH ×3 (07:30→19:15)
[2022-06-29] MEDS: CYANOCOBALAMIN 500 MCG TAB PO SCH ×2 (09:45→09:55)
[2022-06-29] MEDS: THIAMINE 100mg/ml INJ (200mg/2ml VIAL) IV SCH (09:45)
[2022-06-29] MEDS: PANTOPRAZOLE 40 MG/10 ML VIAL INJ IV SCH ×2 (09:45→22:05)
[2022-06-29] MEDS: FOLIC ACID 1 MG in D5W 5% 50 ML INJ SCH (09:46)
[2022-06-29] MEDS: fentaNYL Drip 2500mCg/250mlNS 250 ML IV SCH (12:02)
[2022-06-29] MEDS: DexAMETHasone SOD PHOS 4 MG/1ML SDV INJ IV SCH (12:02)
[2022-06-29] MEDS: VANCOMYCIN 1GM/250ML 250 ML IV SCH (13:01)
[2022-06-29] MEDS: NOREPINEPHRINE 8 MG/250ML KIT 250 ML IV SCH (15:30)
[2022-06-29] MEDS ORDERED: TPN PER PHARMACY IV NR ×7 (20:00)
[2022-06-30] VITALS (101 sets, daily range): BP systolic 89–114; BP diastolic 40–58
[2022-06-30] MEDS: ACCU-CHEK COMFORT CURVE STRIP VI SCH ×4 (00:06→17:33)
[2022-06-30] MEDS: DexAMETHasone SOD PHOS 4 MG/1ML SDV INJ IV SCH ×2 (00:06→11:43)
[2022-06-30] MEDS: InsuLIN REG 1unit/0.01ml Soln (100units/ml) SC SCH ×4 (00:11→17:42)
[2022-06-30] MEDS: fentaNYL Drip 2500mCg/250mlNS 250 ML IV SCH ×2 (00:50→13:55)
[2022-06-30] MEDS: MIDAZOLAM DRIP 50 mg/50mL 50 ML IV SCH ×6 (00:50→22:09)
[2022-06-30] MEDS: CEFEPIME 1GM/ 50ML 50 ML IV SCH ×2 (04:16→16:21)
[2022-06-30 04:39] LABS: Calcium 6.3 mg/dL (8.5-10.1); Potassium 4.7 mmol/L (3.5-5.1)
[2022-06-30 04:42] LABS: Albumin 1.7 g/dL (3.4-5.0); BUN/Creatinine Ratio 68.4; Magnesium 1.9 mg/dL (1.6-2.6)
[2022-06-30 04:45] LABS: Bilirubin, Total 2.9 mg/dL (0.2-1.0); Phosphorus 3.9 mg/dL (2.5-4.90); Total Protein 4.1 g/dL (6.4-8.2)
[2022-06-30] MEDS: SOD CHL 0.45% 1,000 ML IV SCH (05:44)
[2022-06-30] MEDS: metroNIDAZOLE 500MG/100ML 100 ML IV SCH ×3 (06:10→22:09)
[2022-06-30] MEDS: VASOPRESSIN 50 UNITS in D5W 5% 247.5 ML IV SCH (07:54)
[2022-06-30] MEDS: PANTOPRAZOLE 40 MG/10 ML VIAL INJ IV SCH ×2 (09:45→22:10)
[2022-06-30] MEDS: FOLIC ACID 1 MG in D5W 5% 50 ML INJ SCH (09:45)
[2022-06-30] MEDS ORDERED: CALCIUM GLUC 1,000mg/50ml-NS 50 ML IV ONE (09:45)
[2022-06-30] MEDS: CYANOCOBALAMIN 500 MCG TAB PO SCH (10:00)
[2022-06-30] MEDS: THIAMINE 100mg/ml INJ (200mg/2ml VIAL) IV SCH (10:11)
[2022-06-30] MEDS: PROPOFOL 100 ML IV SCH ×2 (10:48→20:11)
[2022-06-30] MEDS: NOREPINEPHRINE 8 MG/250ML KIT 250 ML IV SCH (15:03)
[2022-06-30] MEDS ORDERED: TPN PER PHARMACY IV NR ×7 (20:00)
[2022-07-01] VITALS (38 sets, daily range): BP systolic 81–98; BP diastolic 32–46
[2022-07-01] MEDS: ACCU-CHEK COMFORT CURVE STRIP VI SCH ×2 (00:25→06:00)
[2022-07-01] MEDS: InsuLIN REG 1unit/0.01ml Soln (100units/ml) SC SCH ×2 (00:27→06:33)
[2022-07-01] MEDS: fentaNYL Drip 2500mCg/250mlNS 250 ML IV SCH (01:50)
[2022-07-01] MEDS: MIDAZOLAM DRIP 50 mg/50mL 50 ML IV SCH ×2 (02:50→07:43)
[2022-07-01] MEDS: SOD CHL 0.45% 1,000 ML IV SCH (03:53)
[2022-07-01] MEDS: CEFEPIME 1GM/ 50ML 50 ML IV SCH (04:05)
[2022-07-01 04:30] LABS: Hematocrit 20.7 % (41.0-53.0); Mean Corpuscular Hemoglobin 30.7 pg (28.0-32.0); Mean Corpuscular Hgb Conc. 30.5 g/dL (32.0-36.0); Mean Corpuscular Volume 100.6 fL (80.0-100.0); Red Blood Cells 2.06 10^6/uL (4.5-5.90)
[2022-07-01 04:44] LABS: Potassium 4.5 mmol/L (3.5-5.1); Red Cell Distribution Width 20.5 % (11.8-14.3)
[2022-07-01 04:45] LABS: Hemoglobin 6.3 g/dL (13.5-17.5); White Blood Cell 232.2 10^3/uL (4.4-10.8)
[2022-07-01 04:46] LABS: Band Neutrophils % (manual) 0; Basophils % (manual) 0 (0.0-2.0); Blast Cells 0; Eosinophils % (manual) 0 (0-7); Promyelocytes % 0; Reactive Lymphocytes 0
[2022-07-01 04:54] LABS: Albumin 1.7 g/dL (3.4-5.0); BUN/Creatinine Ratio 49.7; Calcium 6.6 mg/dL (8.5-10.1); Magnesium 2.3 mg/dL (1.6-2.6); Phosphorus 4.2 mg/dL (2.5-4.90)
[2022-07-01 04:59] LABS: Bilirubin, Total 2.8 mg/dL (0.2-1.0)
[2022-07-01] MEDS: metroNIDAZOLE 500MG/100ML 100 ML IV SCH (06:30)
[2022-07-01 06:48] LABS: Lymphocytes % (manual) 3 (10.0-50.0); Metamyelocytes % 6; Monocytes % (manual) 38 (0-12); Myelocytes % 17
== END 2022-07-01 08:10 | disposition short-term general hospital (02) | DRG 870 ==
LOC: EDBD 14:23 → ER 14:23 → ICU WEST 19:39
PROVIDERS: ADMIT Nurse Practitioner Family; ATTEND Internal Medicine
PROC: 5A1955Z Respiratory Ventilation, Greater than 96 Consecutive Hours (ICD-10-PCS; principal; 2022-06-21)
PROC: 0BH17EZ Insertion of Endotracheal Airway into Trachea, Via Natural or Artificial Opening (ICD-10-PCS; 2022-06-21)
PROC: 30233K1 Transfusion of Nonautologous Frozen Plasma into Peripheral Vein, Percutaneous Approach (ICD-10-PCS; 2022-06-21)
PROC: 06HM33Z Insertion of Infusion Device into Right Femoral Vein, Percutaneous Approach (ICD-10-PCS; 2022-06-21)
PROC: 30233N1 Transfusion of Nonautologous Red Blood Cells into Peripheral Vein, Percutaneous Approach (ICD-10-PCS; 2022-06-21)
PROC: 30233R1 Transfusion of Nonautologous Platelets into Peripheral Vein, Percutaneous Approach (ICD-10-PCS; 2022-06-22)
DX: A41.9 Sepsis, unspecified organism (principal); D65 Disseminated intravascular coagulation [defibrination syndrome]; I21.4 Non-ST elevation (NSTEMI) myocardial infarction; J69.0 Pneumonitis due to inhalation of food and vomit; R65.21 Severe sepsis with septic shock; G93.41 Metabolic encephalopathy; K72.00 Acute and subacute hepatic failure without coma; R57.0 Cardiogenic shock; I60.9 Nontraumatic subarachnoid hemorrhage, unspecified; J96.01 Acute respiratory failure with hypoxia; E87.0 Hyperosmolality and hypernatremia; N17.9 Acute kidney failure, unspecified; G93.1 Anoxic brain damage, not elsewhere classified; I13.0 Hypertensive heart and chronic kidney disease with heart failure and stage 1 through stage 4 chronic kidney disease, or unspecified chronic kidney disease; K92.2 Gastrointestinal hemorrhage, unspecified; C92.10 Chronic myeloid leukemia, BCR/ABL-positive, not having achieved remission; K76.82 Hepatic encephalopathy; I25.10 Atherosclerotic heart disease of native coronary artery without angina pectoris; I48.91 Unspecified atrial fibrillation; R79.89 Other specified abnormal findings of blood chemistry; I50.9 Heart failure, unspecified; I25.2 Old myocardial infarction; D50.0 Iron deficiency anemia secondary to blood loss (chronic); D75.89 Other specified diseases of blood and blood-forming organs; D53.9 Nutritional anemia, unspecified; Z20.822 Contact with and (suspected) exposure to COVID-19; N18.9 Chronic kidney disease, unspecified; E83.39 Other disorders of phosphorus metabolism; E88.09 Other disorders of plasma-protein metabolism, not elsewhere classified; Z95.1 Presence of aortocoronary bypass graft; Z91.041 Radiographic dye allergy status
CPT/HCPCS: 36415; 36430; 36600; 70450; 71045; 71250; 72125; 74176; 76775; 80048; 80053; 80074; 80202; 80307; 80320; 81001; 82140; 82306; 82570; 82607; 82728; 82746; 82805; 82962; 83605; 83735; 83970; 84100; 84156; 84300; 84439; 84443; 84478; 84484; 85007; 85025; 85027; 85362; 85379; 85384; 85610; 85730; 86803; 86850; 86900; 86901; 86920; 87040; 87070; 87077; 87081; 87186; 87205; 87340; 87426; 93005; 93306; 93970; 94002; 94003; 95819; 96365; 96367; 96375; 99291; C9113; G0378; J1100; J1815; J2250; J2543; J2704; J3430; J3490; J7060